=== PATIENT | female | born 1945 | race Asian ===

== ENCOUNTER → 2016-09-11 | Outpatient (CLI) | payer MEDICARE, OTHER | END | disposition home or self-care (01) | LOC: RAD 15:19 | PROVIDERS: ATTEND Surgery | DX: C22.9 Malignant neoplasm of liver, not specified as primary or secondary (principal) ==

== ENCOUNTER 2016-09-27 06:23 | Day surgery (SDC) | payer OTHER ==
[~2016-09-27] VITALS: Ht 167.6 cm; Wt 52.4 kg
[2016-09-27 06:57] VITALS: BP 140/76
[2016-09-27] MEDS ORDERED: CEFAZOLIN PMX 1GM/50ML 50 ML IV ONE (07:00)
[2016-09-27] MEDS ORDERED: LOSA50TA6 PO (07:02)
[2016-09-27] MEDS ORDERED: ATOR20TA9 PO (07:02)
[2016-09-27] MEDS ORDERED: vitamin c PO (07:02)
[2016-09-27] MEDS ORDERED: AMLO10TA2 PO (07:02)
[2016-09-27] MEDS ORDERED: SODIUM CHLORIDE 0.9% 1,000 ML IV SCH (07:02)
[2016-09-27] MEDS ORDERED: xanax PO (07:02)
[2016-09-27] MEDS ORDERED: ASPI-496 PO (07:02)
[2016-09-27] MEDS ORDERED: LIDOCAINE 1%, 20ML ONE (07:40)
[2016-09-27] MEDS ORDERED: NALOXONE 1 MG/ML, 2ML ONE (07:56)
[2016-09-27] MEDS ORDERED: FENTANYL PF 100 MCG/2ML ONE (07:56)
[2016-09-27] MEDS ORDERED: MIDAZOLAM 1 MG/ML, 5ML ONE (07:56)
[2016-09-27] MEDS ORDERED: FLUMAZENIL 0.1 MG/1 ML, 5ML ONE (07:56)
[2016-09-27] MEDS ORDERED: DOXORUBICIN IV SCH (08:00)
[2016-09-27] MEDS ORDERED: OMNIPAQUE 350 MG/ML, 150 ML BOTTLE ONE (15:02)
[2016-09-27] MEDS ORDERED: OMNIPAQUE 350 MG/ML, 100ML BOTTLE ONE (15:02)
== END 2016-09-27 14:05 ==
LOC: OUT 06:23
PROVIDERS: ATTEND Surgery
DX: C22.9 Malignant neoplasm of liver, not specified as primary or secondary (principal); I10 Essential (primary) hypertension
CPT/HCPCS: 36247; 36415; 37243; 75894; 85610; 99156; 99157; C1751; C1769; C1894; J0690; J2250; J3010; J3490; J7030; Q9967; J2310

== ENCOUNTER 2017-02-23 07:35 | Day surgery (SDC) | payer OTHER ==
[~2017-02-23] VITALS: Ht 167.6 cm; Wt 65.3 kg
[~2017-02-23 07:35] MED LIST: AMLO10TA2 PO; ASPI-496 PO; ATOR20TA9 PO; LOSA50TA6 PO; vitamin c PO; xanax PO
[2017-02-23 08:05] VITALS: BP 160/67
[2017-02-23] MEDS: SODIUM CHLORIDE 0.9% 1,000 ML IV SCH ×2 (08:29→08:38)
[2017-02-23] MEDS ORDERED: CEFAZOLIN PMX 1GM/50ML 50 ML ONE (08:33)
[2017-02-23] MEDS ORDERED: DOXorubicin 75 MG in SYRINGE 1 EA IV ONE (09:00)
[2017-02-23 09:02] LABS: INTERNATIONAL NORMALIZED RATIO 0.96 (0.93-1.1)
[2017-02-23] MEDS ORDERED: LIDOCAINE 1%, 10ML ONE (09:11)
[2017-02-23] MEDS ORDERED: MIDAZOLAM 1 MG/ML, 2ML ONE ×2 (09:31)
[2017-02-23] MEDS ORDERED: FENTANYL PF 100 MCG/2ML ONE ×2 (09:31)
[2017-02-23] MEDS ORDERED: NALOXONE 1 MG/ML, 2ML ONE (09:32)
[2017-02-23] MEDS ORDERED: FLUMAZENIL 0.1 MG/1 ML, 5ML ONE (09:32)
[2017-02-23] MEDS ORDERED: VISIPAQUE 320MG/ML, 50ML BOTTLE ONE (13:00)
[2017-02-23] MEDS ORDERED: HYDROcodone/APAP 5/325 TABLET PO ONE (14:30)
== END 2017-02-23 17:00 | disposition home or self-care (01) ==
LOC: OUT 07:35
PROVIDERS: ATTEND Surgery
DX: C22.9 Malignant neoplasm of liver, not specified as primary or secondary (principal); Z88.2 Allergy status to sulfonamides; I10 Essential (primary) hypertension; Z79.899 Other long term (current) drug therapy
CPT/HCPCS: 36247; 36248; 36415; 37243; 75726; 75774; 85610; 99156; 99157; C1751; C1769; J2250; J3010; J3490; J7030; J9000; Q9967; 75894; J2310

== ENCOUNTER 2018-04-25 07:39 | Day surgery (SDC) | payer MEDICARE ==
[~2018-04-25] VITALS: Ht 167.6 cm; Wt 63.3 kg
[~2018-04-25 07:39] MED LIST changes: -AMLO10TA2 PO; +AMLO10TA8 PO; +ATOR20TA37 PO; -ATOR20TA9 PO; +LOSA50TA14 PO; -LOSA50TA6 PO
[2018-04-25 08:28] VITALS: BP 169/73
[2018-04-25] MEDS ORDERED: CEFAZOLIN PMX 1GM/50ML 50 ML IV ONE (08:30)
[2018-04-25] MEDS ORDERED: PLEASE ENTER HEIGHT AND WEIGHT MC SCH (08:30)
[2018-04-25] MEDS ORDERED: LIDOCAINE-MPF 1%, 5ML ONE (09:06)
[2018-04-25] MEDS ORDERED: FENTANYL PF 100 MCG/2ML ONE ×2 (09:28)
[2018-04-25] MEDS ORDERED: MIDAZOLAM 1 MG/ML, 5ML ONE (09:28)
[2018-04-25] MEDS ORDERED: FLUMAZENIL 0.1 MG/1 ML, 5ML ONE (09:28)
[2018-04-25] MEDS ORDERED: NALOXONE 1 MG/ML, 2ML ONE (09:28)
[2018-04-25] MEDS ORDERED: DOXorubicin 75 MG in SYRINGE 1 EA INJ ONE (09:30)
[2018-04-25] MEDS ORDERED: VISIPAQUE 320 MG/ML, 150ML BOTTLE ONE (10:57)
== END 2018-04-25 17:00 | disposition home or self-care (01) ==
LOC: OUT 07:39 → EDSTATUS 09:30 → OUT 17:00
PROVIDERS: ATTEND Family Medicine
DX: C22.7 Other specified carcinomas of liver (principal); I10 Essential (primary) hypertension; Z86.19 Personal history of other infectious and parasitic diseases; Z88.1 Allergy status to other antibiotic agents
CPT/HCPCS: 36247; 37243; 75726; 99156; 99157; C1751; C1769; J2250; J3010; J9000; Q9967; 36248; 75894; J2310